=== PATIENT | male | born 1960 | race Hispanic/Latino ===

== ENCOUNTER 2017-09-09 12:23 | Emergency (ER) | payer OTHER ==
[~2017-09-09] VITALS: Ht 182.9 cm; Wt 88.0 kg
[2017-09-09 13:35] LABS: ABSOLUTE BASOPHIL COUNT 0 /CUMM (0.0-0.2); ABSOLUTE EOSINOPHIL COUNT 0 /CUMM (0.0-0.7); ABSOLUTE GRANULOCYTE CT 9.5 /CUMM (1.4-6.5); ABSOLUTE LYMPH COUNT 0.6 /CUMM (1.2-3.4); ABSOLUTE MONOCYTE COUNT 0.5 /CUMM (0.10-0.60); BASOPHIL % 0 % (0.0-2.0); EOSINOPHIL % 0.3 % (0-5); HEMATOCRIT 39.3 % (42-52); MEAN CORPUSCULAR HGB 30.5 PG (27.0-31.0); MEAN CORPUSCULAR HGB CONC 33.8 G/DL (33.0-37.0); MEAN CORPUSCULAR VOLUME 90.3 FL (80.0-94.0); MEAN PLATELET VOLUME 7.2 FL (7.4-10.4); PLATELET COUNT 223 /CUMM (130-400); RBC DISTRIBUTION WIDTH 13.1 % (11.5-14.5); RED BLOOD CELL CT 4.35 /CUMM (4.70-6.10); WHITE BLOOD CELL COUNT 10.6 /CUMM (4.8-10.8)
[2017-09-09 13:56] LABS: GRANULOCYTE % 89.5 % (42.2-75.2)
--- NOTE | 2017-09-09 13:59 | ED GI/GU/ABDOMINAL COMPLAINT ---
History of Present Illness General Chief Complaint: Male Genitourinary Problems Stated Complaint: URINARY PROBLEMS Source: patient, family, old records Exam Limitations: no limitations Vital Signs & Intake/Output Vital Signs & Intake/Output Vital Signs Date Time Temp Pulse Resp B/P B/P Pulse O2 O2 Flow FiO2 Mean Ox Delivery Rate 09/09 1840 97.6 75 18 142/65 99 09/09 1720 101.7 09/09 1531 98.7 78 18 128/68 97 Room Air 09/09 1438 99.9 09/09 1434 99.9 68 131/60 96 09/09 1342 96 Room Air 09/09 1234 101.8 89 20 146/74 96 Room Air ED Intake and Output 09/10 0000 09/09 1200 Intake Total 1000 Output Total Balance 1000 Intake, IV 1000 Patient 194 lb Weight Weight Reported by Patient Measurement Method Allergies Coded Allergies: No Known Allergies (09/09/17) Triage Note: PT TO ED C/O URINARY URGENCY AND FREQUENCY SINCE LAST NIGHT. STATES LEFT AND RIGHT FLANK PAIN. TEMP 101.8 IN TRIAGE. DENIES ANY CHEST PAIN. Triage Nurses Notes Reviewed? yes Onset: Evening Duration: hour(s):, constant, continues in ED, getting worse Timing: recent history Quality/Severity: aching, cramping, moderate Location: generalized abdomen Radiation: no radiation Activities at Onset: rest Prior Abdominal Problems: similar symptoms Past Sexual History: Unobtainable at this time No Modifying Factors: none Associated Symptoms: abdominal pain, dysuria, fever/chills, loss of appetite HPI: 1 day prior to admission patient complains of burning urination frequency chills. Prior to admission complains of generalized body aches weakness. He denies chest pain cough shortness of breath headache rash bleeding. (Rush Roque MD) Reconcile Medications Amlodipine Besylate 10 MG TABLET 1 TAB PO DAILY HEART (Reported) Ciprofloxacin HCl (Cipro) 500 MG TABLET 1 TAB PO BID PYELONEPHRITIS (Ezekiel Singleton DO) Past History Travel History Traveled to [place] past 21 day No Medical History Any Pertinent Medical History? see below for history Cardiovascular: hypertension Surgical History Surgical History: non-contributory Psychosocial History What is your primary language [place] Tobacco Use: Quit >30 days ago ETOH Use: denies use Illicit Drug Use: denies illicit drug use Family History Hx Contributory? No (Rush Roque MD) Review of Systems Review of Systems Constitutional: Reports: see HPI, chills, fever. EENTM: Reports: no symptoms. Respiratory: Reports: no symptoms. Cardiovascular: Reports: no symptoms. GI: Reports: no symptoms. Genitourinary: Reports: see HPI, dysuria, frequency, pain, urgency. Musculoskeletal: Reports: no symptoms. Skin: Reports: no symptoms. Neurological/Psychological: Reports: no symptoms. Hematologic/Endocrine: Reports: no symptoms. Immunologic/Allergic: Reports: no symptoms. All Other Systems: Reviewed and Negative (Rush Roque MD) Physical Exam Physical Exam General Appearance: well developed/nourished, alert, awake, anxious, moderate distress, thin Head: atraumatic, normal appearance Eyes: Bilateral: normal appearance, PERRL, EOMI, normal inspection. Ears, Nose, Throat, Mouth: hearing grossly normal, moist mucous membrane Neck: normal inspection, supple, full range of motion, normal alignment Respiratory: normal breath sounds, chest non-tender, no respiratory distress, quiet respiration, lungs clear Cardiovascular: regular rate/rhythm, normal peripheral pulses, norml femoral pulses equa Peripheral Pulses: 4+ carotid (R), 4+ carotid (L) Gastrointestinal: normal bowel sounds, soft, non-tender, no organomegaly Male Genitals: normal genitalia Back: normal inspection, normal range of motion, No CVA tenderness Extremities: normal range of motion, no ligament instability Neurologic/Psych: no motor/sensory deficits, awake, alert, oriented x 3, normal gait, normal mood/affect, dishtank operator II-XII nml as tested Skin: intact, normal color Core Measures ACS in differential dx? No Sepsis Present: No Sepsis Focused Exam Completed? No (Rush Roque MD) Progress Differential Diagnosis: ureterolithiasis, urinary retention, urethritis, UTI/ pyelo Plan of Care: Orders Procedure Date/time Status Add-on Test (ER Only) 09/09 1753 Active LACTIC ACID 09/09 1710 Complete Add-on Test (ER Only) 09/09 1645 Active DIRECT BILIRUBIN 09/09 1318 Complete CULTURE,URINE 09/09 1248 Active BLOOD CULTURE 09/09 1248 Active URINALYSIS 09/09 1248 Complete COMPREHENSIVE METABOLIC PANEL 09/09 1248 Complete CBC WITHOUT DIFFERENTIAL 09/09 1248 Complete EKG 09/09 1224 Active Laboratory Tests 09/09/17 1724: Lactic Acid 1.4 09/09/17 1318: Anion Gap 11, Estimated GFR > 60, BUN/Creatinine Ratio 14.4, Glucose 98, Calcium 9.2, Total Bilirubin 2.5 H, Direct Bilirubin 0.5 H, AST 43, ALT 38, Alkaline Phosphatase 62, Total Protein 6.8, Albumin 4.1, Globulin 2.7, Albumin/Globulin Ratio 1.5, CBC w Diff NO MAN DIFF REQ, RBC 4.35 L, MCV 90.3, MCH 30.5, MCHC 33.8, RDW 13.1, MPV 7.2 L, Gran % 89.5 H, Lymphocytes % 5.3 L, Monocytes % 4.9, Eosinophils % 0.3, Basophils % 0, Absolute Granulocytes 9.5 H, Absolute Lymphocytes 0.6 L, Absolute Monocytes 0.5, Absolute Eosinophils 0, Absolute Basophils 0 09/09/17 131: Urine Color YEL, Urine Clarity HAZY H, Urine pH 6.0, Ur Specific [place] 1.010, Urine Protein TRACE H, Urine Ketones TRACE H, Urine Nitrite NEG, Urine Bilirubin NEG, Urine Urobilinogen 0.2, Ur Leukocyte Esterase MOD H, Ur Microscopic SEDIMENT EXAMINED, Urine RBC 3-5, Urine WBC 25-50 H, Urine Bacteria FEW H, Urine Hemoglobin MOD H, Urine Glucose NEG Microbiology 09/09 1317 BLOOD: Blood Culture - RECD 09/09 1314 URINE ROUT: Urine Culture - RECD Initial ED EKG: none Rhythm Strip: normal sinus rhythm Hand-Off Endorsed To: Ezekiel Singleton DO Endorsed Time: 1500 Pending: CT (Rush Roque MD) Departure Departure Disposition: STILL A PATIENT Condition: Stable Clinical Impression Primary Impression: Pyelonephritis Secondary Impressions: Fever, UTI (urinary tract infection) Referrals: Linda GRIFFIN,Yuan Reddy (PCP/Family) Departure Forms: Customer Survey General Discharge Information (Rush Roque MD) Departure Prescriptions: Current Visit Scripts Ciprofloxacin HCl (Cipro) 1 TAB PO BID #28 TAB Comments The patient was signed out to me by Dr. Roque. He presented to the emergency department with fever, dysuria and right flank pain. He has a history of UTI and pyelonephritis in the past, and he said the symptoms have presented the same way. CT scan of the head was ordered inadvertently and did reveal some nonspecific findings that were consistent possible early noncommunicating hydrocephalus. CT scan of the abdomen and pelvis was negative. He did admit to a mild headache that had improved. He had no nuchal rigidity, no Kernig's or Brudzinski sign, no findings consistent with meningitis. His labs were unremarkable other than mild hyperbilirubinemia. The lab results and CT findings were reviewed in detail with the patient and family. He was given IV ceftriaxone in the ED. Repeat bilirubin will be drawn in 48 hours. Cipro was given. I did discuss the case with infectious disease was in agreement with the plan of care. The patient did recently travel to the [facility]. Zika virus was considered. He had no rash. There were told to return to the emergency department immediately should he get worse in anyway. He was tolerating by mouth fluids. Sepsis was considered. Lactic acid level was normal. (Ezekiel Singleton DO)
[2017-09-09] MEDS ORDERED: AMLODIPINE BESY10 M1 PO (14:38)
--- NOTE | 2017-09-09 15:44 | CT SCAN REPORT ---
EXAMINATION: CT HEAD WITHOUT CONTRAST CLINICAL INFORMATION: Fever. COMPARISON: None TECHNIQUE: Contiguous axial imaging was performed from the skull base to vertex without intravenous administration of contrast. DLP: 616 mGy-cm FINDINGS: There is no evidence of acute intracranial hemorrhage or territorial infarction. No abnormal mass effect or midline shift is seen. Couch to white matter differentiation is well preserved. No extra-axial fluid collections are identified. There is moderate prominence of the lateral and third ventricles, without commensurate sulcal prominence. There is slight asymmetric effacement of the left high frontoparietal sulci at the vertex relative to the right, which is nonspecific (see for example series 2 image 51). No definitive periventricular hypoattenuation to suggest transependymal migration of CSF. There is minor patchy hypoattenuation within the brain parenchyma primarily within the deep and subcortical white matter near the vertex, nonspecific. The basilar cisterns are maintained. The cerebellar tonsils are normally positioned. No acute osseous abnormality. There is patchy opacification of the ethmoid air cells and mild mucosal thickening within the left sphenoid air cell. The mastoid air cells and middle ear cavities are clear. No acute soft tissue abnormality. The visualized orbits appear unremarkable. Youth Care Worker image demonstrates mild lower cervical spondylosis. No definitive prevertebral soft tissue swelling. IMPRESSION: No evidence of intracranial hemorrhage or territorial infarct. There is mild asymmetric effacement of the high left frontoparietal sulci relative to the right, nonspecific, possibly artifactual. In the setting of fever a meningitis is not excluded. Correlation with CSF analysis can be considered. The lateral and third ventricles are moderately prominent, out of proportion to the sulci. There is no evidence of transependymal migration of CSF. This could reflect central greater than peripheral volume loss, however, communicating hydrocephalus is not excluded.
--- NOTE | 2017-09-09 16:28 | CT SCAN REPORT ---
EXAMINATION: CT ABDOMEN AND PELVIS WITHOUT CONTRAST CLINICAL INFORMATION: Abdominal pain. COMPARISON: None TECHNIQUE: Multidetector volumetric imaging was performed from the superior aspect of the liver through the pubic symphysis. Sagittal and coronal reformatted images were obtained on the technologist's workstation. DLP: 410.13 mGy-cm FINDINGS: There is minimal linear subsegmental atelectasis in the lower lobes. A faint 2 mm groundglass nodule is visible in the subpleural aspect of the left lower lobe. Very mild emphysematous changes noted. The unenhanced liver, spleen, adrenal glands, pancreas, and gallbladder appear normal. There is a small hiatal hernia. A punctate calculus is noted at the lower pole of the left kidney. There is no hydronephrosis. No obstructing ureteral calculi are seen. The bladder is partially distended without wall thickening or retained stones. The abdominal aorta is normal in caliber with mild atherosclerotic wall calcifications. No retroperitoneal adenopathy is seen. There is no evidence of a bowel obstruction. No large bowel thickening is seen. There is a moderate amount of stool in the colon. Postsurgical changes are present in the right aspect of the colon with suture material visible. No free air or free fluid is seen. No drainable fluid collections are identified. No acute osseous abnormality is seen. There is significant spondylosis at L5-S1 with bulky endplate spurring resulting in significant foraminal encroachment, worse on the left side. IMPRESSION: No acute intra-abdominal or pelvic process. No obstructing ureteral calculus. Punctate calculus at the lower pole the left kidney. No hydronephrosis.
[2017-09-09] MEDS ORDERED: CIPRO500 M1 PO (18:37)
[2017-09-09 18:40] VITALS: BP 142/65
== END 2017-09-09 18:53 ==
LOC: ERH 12:23
PROVIDERS: Emergency Medicine
DX: N12 Tubulo-interstitial nephritis, not specified as acute or chronic (principal); N39.0 Urinary tract infection, site not specified
CPT/HCPCS: 74176; 81001; 87040; 87086; 93005; 93010; 96374; 96375; J0131; J0696; J1885